=== PATIENT | female | born 1990 | race Caucasian/White ===

== ENCOUNTER 2017-01-24 20:15 | Emergency (ER) | payer BC, MEDICAID ==
[2017-01-24 20:32] VITALS: BP 118/82; PULSE 99; RESP 20; TEMP 98.1; O2SAT 99
--- NOTE | 2017-01-24 21:18 | C.PDOC ---
History Of Present Illness 26 y/o female c/o vaginal irritation, thin white vaginal discharge and right pelvic pain today. 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 no fever or chills. no urinary symptoms. pt had unprotected sex recently with her regular partner, denies dyspareunia. . Time Seen by Provider: 01/24/17 21:00 Chief Complaint (Nursing): Female Genitourinary Past Medical History Reviewed: Historical Data, Nursing Documentation, Vital Signs Vital Signs: Last Vital Signs Temp 98.1 F 01/24/17 20:29 Pulse 99 H 01/24/17 20:29 Resp 20 01/24/17 20:29 BP 118/82 01/24/17 20:29 Pulse Ox 99 01/24/17 22:18 - Medical History PMH: No Chronic Diseases Surgical History: No Surg Hx Family History: States: Unknown Family Hx - Social History Hx Tobacco Use: No Hx Alcohol Use: No Hx Substance Use: No - Immunization History Hx Tetanus Toxoid Vaccination: No Hx Influenza Vaccination: No Hx Pneumococcal Vaccination: No Review Of Systems Constitutional: Negative for: Fever, Chills Gastrointestinal: Negative for: Nausea, Vomiting, Diarrhea Genitourinary: Positive for: Vaginal Discharge, Pelvic Pain. Negative for: Dysuria, Frequency, Incontinence, Hematuria, Vaginal Bleeding Neurological: Negative for: Weakness, Numbness Physical Exam - Physical Exam Appears: Non-toxic, No Acute Distress Skin: Normal Color, Warm, Dry Head: Atraumatic, Normacephalic Cardiovascular: Rhythm Regular, No Murmur Respiratory: Normal Breath Sounds, No Rales, No Rhonchi, No Stridor Gastrointestinal/Abdominal: Normal Exam, Soft, No Tenderness, No Distention, No Guarding, No Rebound Pelvic: Normal External Exam, Normal Bimanual Exam, No Vaginal Bleeding, Vaginal Discharge (thick clumpy white dischrge with some thin white discharge. 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 Prescriptions: Miconazole 2% Vaginal [Monistat 7 Vaginal Cream] 7 applic VG HS #1 tube Instructions: Vulvovaginal Candidiasis (ED) Forms: General Discharge Instructions - Clinical Impression Clinical Impression: Candidiasis of vagina
[2017-01-24 21:31] LABS: RBC URINE < 1 /hpf (0-3); URINE BILIRUBIN NEGATIVE (NEGATIVE); URINE BLOOD NEGATIVE (NEGATIVE); URINE COLOR Yellow (YELLOW); URINE GLUCOSE (UA) NORMAL (Normal); URINE KETONE NEGATIVE (NEGATIVE); URINE LEUKOCYTE ESTERASE NEG Leu/uL (Negative); URINE PROTEIN NEGATIVE (NEGATIVE); URINE UROBILINOGEN NORMAL mg/dL (0.2-1.0); WBC URINE < 1 /hpf (0-5)
== END 2017-01-24 22:40 | disposition home or self-care (01) ==
LOC: C.ER 20:15
DX: B37.3 Candidiasis of vulva and vagina (principal)

== ENCOUNTER 2017-08-03 18:23 | Emergency (ER) | payer BC, MEDICAID ==
[2017-08-03 18:45] VITALS: RESP 18
[2017-08-03] MEDS ORDERED: Amoxicillin-Clav 875-125 mg Tab PO STA (19:27)
--- NOTE | 2017-08-03 19:30 | C.PDOC ---
History Of Present Illness 26 yr old female with history of seasonal allergy, presents to the ER for evaluation of sore throat and nasal congestion, gradually developing for the past few days which is associated with bilateral ear discomfort states "feels like underwater". Patient denies fever, chills, headache, dizziness, vertigo, visual changes, drooling, dysphagia, dyspnea, CP, SOB, wheezing, nausea, vomiting, abdominal pain, back pain, denies any other active complaints. Ambulate to Ed for evaluation, not in any apparent distress. Time Seen by Provider: 08/03/17 18:59 Chief Complaint (Nursing): ENT Problem History Per: Patient History/Exam Limitations: None Onset/Duration Of Symptoms: Gradual (Past few days) Past Medical History Reviewed: Historical Data, Nursing Documentation, Vital Signs Vital Signs: Last Vital Signs Temp 98.6 F 08/03/17 19:45 Pulse 91 H 08/03/17 19:45 Resp 18 08/03/17 19:45 BP 102/69 08/03/17 19:45 Pulse Ox 99 08/03/17 19:45 Family History: States: No Known Family Hx - Social History Hx Tobacco Use: No Hx Alcohol Use: No Hx Substance Use: No - Immunization History Hx Tetanus Toxoid Vaccination: No Hx Influenza Vaccination: No Hx Pneumococcal Vaccination: No Review Of Systems Except As Marked, All Systems Reviewed And Found Negative. Constitutional: Negative for: Fever, Chills ENT: Positive for: Throat Pain, Other ((+) Bilateral ear discomfort) Cardiovascular: Negative for: Chest Pain Respiratory: Negative for: Shortness of Breath, Wheezing Gastrointestinal: Negative for: Nausea, Vomiting, Abdominal Pain Neurological: Negative for: Weakness, Numbness Physical Exam - Physical Exam Appears: Non-toxic, No Acute Distress Skin: Warm, Dry, No Rash Head: Normacephalic Eye(s): bilateral: PERRL Ear(s): Bilateral: Normal Nose: No Flaring, Discharge (Scant rhinorrhea), Other ((+) Bilateral nasal congestion) Oral Mucosa: Moist, No Drooling Throat: Erythema (Moderate), No Exudate, No Drooling, Other ((+) Bilateral edema ) Neck: Supple Chest: Symmetrical, No Tenderness Cardiovascular: Rhythm Regular, No Murmur, No JVD Respiratory: No Decreased Breath Sounds, No Accessory Muscle Use, No Rales, No Rhonchi, No Stridor, No Wheezing Gastrointestinal/Abdominal: Soft, No Tenderness Extremity: No Swelling Neurological/Psych: Oriented x3, Normal Speech, Normal Motor ED Course And Treatment O2 Sat by Pulse Oximetry: 100 (RA) Pulse Ox Interpretation: Normal Progress Note: On re-eval, pt is afebrile, hemodynamicaly stable. non-toxic. Tolerate Po well in ED. PuslEOx 99% RA. ENT: exam c/w pharyngitis. neck: Supple, (-) meningeal sign. Lungs: CTA B/L, BS equal B/L. Abd: benign, (-) guarding, (-) rebound. Neurologicaly intact. pt advised. ref to f/u with PMD in 1-2 days for re-eval. return to ED if any worsening or new changes. Medical Decision Making Medical Decision Making: PLAN: * Augmentin PO * Motrin PO * Prednisone PO Disposition Counseled Patient/Family Regarding: Diagnosis, Need For Followup, Rx Given - Disposition Referrals: Justina Bah MD [Staff Provider] - Disposition: HOME/ ROUTINE Disposition Time: 19:27 Condition: STABLE Additional Instructions: Encourage fluids Take medication as prescribed Follow up with PMD and ENT In 2-3 days for re-evaluation. return to ED if any worsening or new changes. Prescriptions: Amoxicillin/Clavulanate [Augmentin 875 MG-125 MG] 1 tab PO BID #14 tab Prednisone [Deltasone] 40 mg PO DAILY #6 tablet Instructions: Pharyngitis (ED) Forms: [employer] 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 - Scribe Statement The provider has reviewed the documentation as recorded by the Scribe Roberta Vance All medical record entries made by the Yossiibmichaela were at my direction and personally dictated by me. I have reviewed the chart and agree that the record accurately reflects my personal performance of the history, physical exam, medical decision making, and the department course for this patient. I have also personally directed, reviewed, and agree with the discharge instructions and disposition.
[2017-08-03] MEDS ORDERED: Amoxicillin-Clav 875-125 mg Tab PO ONE (19:40)
[2017-08-03 19:46] VITALS: BP 102/69; PULSE 91; TEMP 98.6
[2017-08-03 22:14] VITALS: O2SAT 100
== END 2017-08-03 19:45 | disposition home or self-care (01) ==
LOC: C.ER 18:23
DX: J02.9 Acute pharyngitis, unspecified (principal)

== ENCOUNTER 2018-05-21 15:57 | Emergency (ER) | payer BC, MEDICAID ==
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
[2018-05-21 16:44] VITALS: BP 107/71; PULSE 75; RESP 18; TEMP 99.3; O2SAT 99
== END 2018-05-21 17:31 | disposition home or self-care (01) ==
LOC: C.ER 15:57
DX: G89.29 Other chronic pain (principal); M54.2 Cervicalgia

== ENCOUNTER 2018-06-04 07:16 | Emergency (ER) | payer MEDICAID ==
[2018-06-04 08:21] LABS: HCG,QUALITATIVE URINE NEGATIVE (NEGATIVE)
[2018-06-04 08:25] LABS: SQUAMOUS EPITHIAL 7 /hpf (0-5); URINE BACTERIA RARE (<OCC); URINE BILIRUBIN NEGATIVE (NEGATIVE); URINE BLOOD 1+ (NEGATIVE); URINE CLARITY Hazy (Clear); URINE COLOR Yellow (YELLOW); URINE GLUCOSE (UA) NORMAL (Normal); URINE LEUKOCYTE ESTERASE NEG Leu/uL (Negative); URINE PROTEIN NEGATIVE (NEGATIVE); URINE UROBILINOGEN NORMAL mg/dL (0.2-1.0)
--- NOTE | 2018-06-04 08:43 | C.PDOC ---
History Of Present Illness 27 year old female presents to the ED complaining of nausea, vomiting, and diarrhea for 1 day. Patient reports she is able to drink water but unable to tolerate food intake. She states 5-10 episodes of loose stools. She denies any fever, chills, abdominal pain, or any other urinary symptoms. Time Seen by Provider: 06/04/18 07:34 Chief Complaint (Nursing): GI Problem History Per: Patient History/Exam Limitations: no limitations Onset/Duration Of Symptoms: Days Current Symptoms Are (Timing): Still Present Past Medical History Reviewed: Historical Data, Nursing Documentation, Vital Signs Vital Signs: Last Vital Signs Temp 98.6 F 06/04/18 09:02 Pulse 82 06/04/18 09:02 Resp 14 06/04/18 09:02 BP 113/72 06/04/18 09:02 Pulse Ox 98 06/04/18 09:02 - Medical History PMH: No Chronic Diseases Surgical History: No Surg Hx Family History: States: No Known Family Hx - Social History Hx Tobacco Use: No Hx Alcohol Use: No Hx Substance Use: No - Immunization History Hx Tetanus Toxoid Vaccination: No Hx Influenza Vaccination: No Hx Pneumococcal Vaccination: No Review Of Systems Except As Marked, All Systems Reviewed And Found Negative. Constitutional: Negative for: Fever, Chills Gastrointestinal: Positive for: Nausea, Vomiting, Diarrhea. Negative for: Abdominal Pain Genitourinary: Negative for: Dysuria, Frequency, Incontinence, Hematuria, Vaginal Discharge Physical Exam - Physical Exam Appears: Non-toxic, No Acute Distress Skin: Warm, Dry, No Rash Head: Atraumatic, Normacephalic Eye(s): bilateral: Normal Inspection Nose: Normal Oral Mucosa: Moist Gingiva: Normal Appearing Throat: Normal, No Erythema, No Exudate, No Drooling Neck: Supple Chest: Symmetrical Cardiovascular: Rhythm Regular, No Murmur Respiratory: Normal Breath Sounds, No Rales, No Rhonchi, No Wheezing Gastrointestinal/Abdominal: Soft, No Tenderness, No Distention, No Guarding, No Rebound Extremity: Normal ROM Neurological/Psych: Oriented x3, Normal Speech Gait: Steady ED Course And Treatment O2 Sat by Pulse Oximetry: 99 (RA) Pulse Ox Interpretation: Normal Medical Decision Making Medical Decision Making: Impression: gastroenteritis, now resolved Orders: Pepcid 20mg PO Zofran 4mg PO Patient is resting comfortably, abdomen remains soft, and patient is tolerating PO. Patient feels comfortable going home. Patient will be discharged home. Disposition Doctor Will See Patient In The: Office Counseled Patient/Family Regarding: Studies Performed, Diagnosis - Disposition Referrals: Justina Bah MD [Staff Provider] - Disposition: HOME/ ROUTINE Disposition Time: 08:43 Condition: GOOD Additional Instructions: continue Pepcid 20 mg twice a day (9AM and 9PM) for stomach irritation/gastritis Maalox 30 cc's (one tablespoon) 4-5x today as needed. bland diet for 2 days BRAT diet: Bananas, white rice, apples/toast/bread drink plenty of fluids Instructions: Viral Gastroenteritis, Adult (DC) Forms: [employer] (Romanian), Work Excuse - Clinical Impression Clinical Impression: Gastroenteritis - Scribe Statement The provider has reviewed the documentation as recorded by the Scribe Lucia Soliman All medical record entries made by the Scribe were at my direction and personally dictated by me. I have reviewed the chart and agree that the record accurately reflects my personal performance of the history, physical exam, medical decision making, and the department course for this patient. I have also personally directed, reviewed, and agree with the discharge instructions and disposition.
[2018-06-04 09:04] VITALS: BP 113/72; PULSE 82; RESP 14; TEMP 98.6
[2018-06-04 10:17] VITALS: O2SAT 99
== END 2018-06-04 09:04 | disposition home or self-care (01) ==
LOC: C.ER 07:16
DX: K52.9 Noninfective gastroenteritis and colitis, unspecified (principal)

== ENCOUNTER 2018-12-30 14:45 | Emergency (ER) | payer MEDICAID, OTHER ==
[2018-12-30 15:14] VITALS: PULSE 84; RESP 20; O2SAT 100
[2018-12-30] MEDS ORDERED: Sodium Chloride 0.9% 1,000 ML IV STA (15:44)
[2018-12-30] MEDS ORDERED: Sodium Chloride 0.9% 1,000 ML ONE (16:01)
[2018-12-30 16:18] LABS: BASO # 0.1 K/uL (0.0-0.2); BASO % 0.4 % (0.0-2.0); EOS # 0.1 K/uL (0.0-0.7); EOS % 0.5 % (0.0-4.0); HEMOGLOBIN 12.7 g/dL (11.0-16.0); LYMPH # 2.6 K/uL (1.0-4.3); LYMPH % 20.4 % (20.0-40.0); MEAN CELL VOLUME 89.2 fL (81.0-99.0); MEAN CORPUSCULAR HEMOGLOBIN 29.4 pg (27.0-31.0); MEAN PLATELET VOLUME 8.8 fL (7.2-11.7); MONO # 0.7 K/uL (0.0-0.8); MONO % 5.4 % (0.0-10.0); NEUT # 9.5 K/uL (1.8-7.0); NEUT % 73.3 % (50.0-75.0); RBC 4.32 Mil/uL (3.80-5.20); RED CELL DISTRIBUTION WIDTH 12.7 % (11.5-14.5); WHITE BLOOD COUNT 12.9 K/uL (4.8-10.8)
[2018-12-30 16:40] LABS: URINE AMORPHOUS SEDIMENT MODERATE /ul (<OCC); URINE BACTERIA OCC (<OCC); URINE BILIRUBIN NEGATIVE (NEGATIVE); URINE BLOOD NEGATIVE (NEGATIVE); URINE CLARITY Turbid (Clear); URINE COLOR Yellow (YELLOW); URINE GLUCOSE (UA) NORMAL (Normal); URINE LEUKOCYTE ESTERASE NEG Leu/uL (Negative); URINE PROTEIN NEGATIVE (NEGATIVE); URINE UROBILINOGEN NORMAL mg/dL (0.2-1.0)
[2018-12-30 17:46] VITALS: BP 103/68; TEMP 98.6
[2018-12-30 17:48] LABS: BLOOD UREA NITROGEN 7 mg/dL (7-17); GFR NON-AFRICAN AMERICAN > 60
[2018-12-30 17:49] LABS: ALB/GLOB RATIO 1.4 (1.0-2.1); ALBUMIN 4.4 g/dL (3.5-5.0); ALT/SGPT 32 U/L (9-52); AST/SGOT 46 U/L (14-36); CALCIUM 8.7 mg/dl (8.6-10.4)
--- NOTE | 2018-12-30 18:11 | C.PDOC ---
History Of Present Illness 28 year old female, 11 weeks , presents to the emergency department with complaints of abdominal discomfort. Patient states that she recently lost a family member and has been emotional, crying often. Patient's family suggested to her to present to the ED to be evaluated, as they were worried regarding her . Patient offered no other complaints at this time. Time Seen by Provider: 12/30/18 15:07 Chief Complaint (Nursing): Abdominal Pain History Per: Patient History/Exam Limitations: no limitations Onset/Duration Of Symptoms: Hrs Current Symptoms Are (Timing): Still Present Location Of Pain/Discomfort: Other (abdomen) Quality Of Discomfort: Other (discomfort) Past Medical History Reviewed: Historical Data, Nursing Documentation, Vital Signs Vital Signs: Last Vital Signs Temp 98.6 F 12/30/18 17:45 Pulse 84 12/30/18 17:45 Resp 20 12/30/18 17:45 BP 103/68 12/30/18 17:45 Pulse Ox 100 12/30/18 17:45 - Medical History PMH: No Chronic Diseases Surgical History: No Surg Hx Family History: States: No Known Family Hx - Social History Hx Tobacco Use: No Hx Alcohol Use: No Hx Substance Use: No - Immunization History Hx Tetanus Toxoid Vaccination: No Hx Influenza Vaccination: No Hx Pneumococcal Vaccination: No Review Of Systems Except As Marked, All Systems Reviewed And Found Negative. Constitutional: Negative for: Fever, Chills Cardiovascular: Negative for: Chest Pain Respiratory: Negative for: Cough, Shortness of Breath Gastrointestinal: Positive for: Abdominal Pain. Negative for: Vomiting, Diarrhea Physical Exam - Physical Exam Appears: Non-toxic, No Acute Distress Skin: Normal Color, Warm, Dry Head: Atraumatic, Normacephalic Eye(s): bilateral: Normal Inspection, PERRL, EOMI Nose: Normal Oral Mucosa: Moist Neck: Normal, Supple Chest: Symmetrical, No Tenderness Cardiovascular: Rhythm Regular, No Murmur Respiratory: Normal Breath Sounds, No Rales, No Rhonchi, No Wheezing Gastrointestinal/Abdominal: Soft, No Tenderness, No Guarding, No Rebound, Other (gravid) Extremity: Normal ROM Neurological/Psych: Oriented x3, Normal Speech, Normal Cognition ED Course And Treatment - Laboratory Results Result Diagrams: 12/30/18 15:49 12/30/18 15:49 Lab Results: Total Bilirubin 0.3 mg/dL (0.2-1.3) 12/30/18 15:49 AST 46 U/L (14-36) H 12/30/18 15:49 ALT 32 U/L (9-52) 12/30/18 15:49 Alkaline Phosphatase 50 U/L (38-126) 12/30/18 15:49 Total Protein 7.5 g/dL (6.3-8.3) 12/30/18 15:49 Albumin 4.4 g/dL (3.5-5.0) 12/30/18 15:49 Globulin 3.1 gm/dL (2.2-3.9) 12/30/18 15:49 Albumin/Globulin Ratio 1.4 (1.0-2.1) 12/30/18 15:49 Urine Color Yellow (YELLOW) 12/30/18 15:49 Urine Clarity Turbid (Clear) 12/30/18 15:49 Urine pH 8.0 (5.0-8.0) 12/30/18 15:49 Ur Specific [place] 1.015 (1.003-1.030) 12/30/18 15:49 Urine Protein Negative mg/dL (NEGATIVE) 12/30/18 15:49 Urine Glucose (UA) Normal mg/dL (Normal) 12/30/18 15:49 Urine Ketones Negative mg/dL (NEGATIVE) 12/30/18 15:49 Urine Blood Negative (NEGATIVE) 12/30/18 15:49 Urine Nitrate Negative (NEGATIVE) 12/30/18 15:49 Urine Bilirubin Negative (NEGATIVE) 12/30/18 15:49 Urine Urobilinogen Normal mg/dL (0.2-1.0) 12/30/18 15:49 Ur Leukocyte Esterase Neg Basil/uL (Negative) 12/30/18 15:49 Amorphous Sediment Moderate /ul (<OCC) H 12/30/18 15:49 Urine Bacteria Occ (<OCC) H 12/30/18 15:49 Beta HCG, Quant 70501.00 mIU/ML 12/30/18 15:49 O2 Sat by Pulse Oximetry: 100 (RA) Pulse Ox Interpretation: Normal - CT Scan/US US Other Rad Studies (CT/US): Read By Radiologist, Radiology Report Reviewed CT/US Interpretation: IMPRESSION: Single live intrauterine gestation of approximately 12 weeks 0 days gestational age. heart rate 152 beats per minute. No subchorionic hemorrhage. Cervix long and closed. Incidental 1.8 cm anterior uterine fibroid. Medical Decision Making Medical Decision Making: Plan: Chemistry Buspar 5mg PO NaCl IV Fluids Zofran 4mg IVP Urinalysis US Patient received ultrasound, but does not want to wait for the results as she has somewhere to be at this time. Disposition - Disposition Referrals: Justina Bah MD [Staff Provider] - Disposition: HOME/ ROUTINE Disposition Time: 18:15 Condition: STABLE Additional Instructions: Follow up with PMD and OBGYN within 1-2 days. Return to ED if feel worse. 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 - Scribe Statement The provider has reviewed the documentation as recorded by the Scribe (Jordin Summers) All medical record entries made by the Scribe were at my direction and personally dictated by me. I have reviewed the chart and agree that the record accurately reflects my personal performance of the history, physical exam, medical decision making, and the department course for this patient. I have also personally directed, reviewed, and agree with the discharge instructions and disposition.
--- NOTE | 2018-12-30 18:13 | US ---
Date of service: 12/30/2018 PROCEDURE: OB Pelvic Ultrasound HISTORY: , pain 10/09/2018 COMPARISON: None available. FINDINGS: UTERUS: Gestational sac: Gestational sac diameter 56 mm equivalent to 11 weeks 4 days gestational age. [place]-rump length 59 mm equivalent to 12 weeks 2 days. Heart rate: 152 bpm. age (Ultrasound estimated): 12 weeks 0 days [place]-gestational hemorrhage: None. Date of delivery (Ultrasound estimated) : 07/14/2019 Uterus measures 12.8 x 7.6 x 6.8 cm. Anterior uterine fibroid, 1.8 cm. CERVIX: Measures 3.7 cm. Long and closed. No cervical abnormality seen. RIGHT OVARY: Measures 2.8 x 2.0 x 2.7 cm. Corpus luteum cyst, 1.2 x 1.1 x 1.4 cm. LEFT OVARY: Measures 2.5 x 2.4 x 2.3 cm. No solid mass. Normal flow. FREE FLUID: None. OTHER FINDINGS: None. IMPRESSION: Single live intrauterine gestation of approximately 12 weeks 0 days gestational age. heart rate 152 beats per minute. No subchorionic hemorrhage. Cervix long and closed. Incidental 1.8 cm anterior uterine fibroid.
[2018-12-30] MEDS ORDERED: Potassium Chloride 10 mEq ER Tab PO STA (18:16)
[2018-12-30 18:17] LABS: BARBITURATES, UR NEGATIVE (NEGATIVE); BENZODIAZEPINES, UR NEGATIVE (NEGATIVE); OPIATES, UR NEGATIVE (NEGATIVE); PHENCYCLIDINE, UR NEGATIVE (NEGATIVE)
[2018-12-30] MEDS ORDERED: Potassium Chloride 10 mEq ER Tab PO ONE (18:22)
== END 2018-12-30 18:22 | disposition home or self-care (01) ==
LOC: C.ER 14:45
DX: O26.891 Other specified pregnancy related conditions, first trimester (principal); F41.9 Anxiety disorder, unspecified; Z3A.12 12 weeks gestation of pregnancy
CPT/HCPCS: 76801; 80053; 80324; 80345; 80346; 80349; 80353; 80358; 80361; 81001; 81025; 83992; 84702; 85025; 96361; 96374; 99285; J2405; J7030

== ENCOUNTER 2019-02-15 00:08 | Emergency (ER) | payer OTHER ==
[2019-02-15 00:16] VITALS: BP 112/72; TEMP 98.6; O2SAT 100
--- NOTE | 2019-02-15 02:07 | C.PDOC ---
History Of Present Illness 28 year old female 18 weeks , first , no previous issues, had US last week that was normal, reports several hours ago began developing lower abdominal radiating to her lower back pain bilaterally. Patient reports the pain worsens when standing up, walking, and moving. Denies injury, vaginal bleeding, or vaginal discharge. She has not taken anything at home for the pain. Time Seen by Provider: 02/15/19 00:41 Chief Complaint (Nursing): Abdominal Pain History Per: Patient History/Exam Limitations: no limitations Onset/Duration Of Symptoms: Hrs Current Symptoms Are (Timing): Still Present Location Of Pain/Discomfort: Other (Lower) Radiation Of Pain To:: Back Quality Of Discomfort: Unable To Describe Associated Symptoms: denies: Other (Vaginal bleeding, Vaginal discharge) Exacerbating Factors: None Alleviating Factors: None Recent travel outside of the [place]: No Past Medical History Reviewed: Historical Data, Nursing Documentation, Vital Signs Vital Signs: Last Vital Signs Temp 98.6 F 02/15/19 00:13 Pulse 96 H 02/15/19 00:13 Resp 18 02/15/19 00:13 BP 112/72 02/15/19 00:13 Pulse Ox 100 02/15/19 00:13 Family History: States: No Known Family Hx - Social History Hx Tobacco Use: No Hx Alcohol Use: No Hx Substance Use: No - Immunization History Hx Tetanus Toxoid Vaccination: No Hx Influenza Vaccination: No Hx Pneumococcal Vaccination: No Review Of Systems Constitutional: Negative for: Fever, Chills Cardiovascular: Negative for: Chest Pain, Palpitations Respiratory: Negative for: Cough, Shortness of Breath Gastrointestinal: Positive for: Abdominal Pain. Negative for: Nausea, Vomiting Genitourinary: Negative for: Vaginal Discharge, Vaginal Bleeding Musculoskeletal: Negative for: Back Pain Skin: Negative for: Rash Neurological: Negative for: Weakness, Numbness Physical Exam - Physical Exam Appears: Non-toxic Skin: Normal Color, Warm Head: Atraumatic, Normacephalic Oral Mucosa: Moist Chest: Symmetrical Cardiovascular: Rhythm Regular Respiratory: Normal Breath Sounds, No Rales, No Rhonchi, No Wheezing Gastrointestinal/Abdominal: Soft, No Tenderness, Other (Gravid uterus up to umbilicus) Back: No CVA Tenderness, No Other (flank tenderness) Neurological/Psych: Oriented x3, Normal Speech ED Course And Treatment O2 Sat by Pulse Oximetry: 100 (room air) Pulse Ox Interpretation: Normal Medical Decision Making Medical Decision Making: Plan: * UA * Tylenol Tylenol PO given for pain. FHT checked, 140bpm. UA unremarkable. On re-eval patient states that she wants to go home and will follow up with her cycle repairer. Disposition - Disposition Disposition: HOME/ ROUTINE Disposition Time: 02:20 Condition: GOOD Additional Instructions: LEANDRA KNIGHT, thank you for letting us take care of you today. Your provider was Elizabeth Irvin MD and you were treated for 18 WEEKS PREG ABD PAIN. The emergency medical care you received today was directed at your acute symptoms. If you were prescribed any medication, please fill it and take as directed. It may take several days for your symptoms to resolve. Return to the Emergency Department if your symptoms worsen, do not improve, or if you have any other problems. Please contact your doctor or call one of the physicians/clinics you have been referred to that are listed on the Patient Visit Information form that is included in your discharge packet. Bring any paperwork you were given at discharge with you along with any medications you are taking to your follow up visit. Our treatment cannot replace ongoing medical care by a primary care provider outside of the emergency department. Thank you for allowing the [facility] team to be part of your care today. If you had an X-Ray or CT scan: A Radiologist will review the ED reading if any change in treatment is needed we will contact you. If you had a blood, urine, or wound culture: It will take several days for the results, if any change in treatment is needed we will contact you. If you had an STI test: It will take 48 hours for the results. Please call after 1 week if you have not heard back. Instructions: Stomach Pain in Early Forms: [employer] ([place]an) - Clinical Impression Clinical Impression: Abdominal pain during - Scribe Statement The provider has reviewed the documentation as recorded by the Scribe Dakotah Prado All medical record entries made by the Scribe were at my direction and personally dictated by me. I have reviewed the chart and agree that the record accurately reflects my personal performance of the history, physical exam, medical decision making, and the department course for this patient. I have also personally directed, reviewed, and agree with the discharge instructions and disposition.
[2019-02-15 02:08] VITALS: PULSE 89; RESP 20
[2019-02-15 02:09] LABS: SQUAMOUS EPITHIAL 2 /hpf (0-5); URINE BACTERIA FEW (<OCC); URINE BILIRUBIN NEGATIVE (NEGATIVE); URINE BLOOD NEGATIVE (NEGATIVE); URINE CLARITY Hazy (Clear); URINE COLOR Yellow (YELLOW); URINE GLUCOSE (UA) NORMAL (Normal); URINE LEUKOCYTE ESTERASE NEG Leu/uL (Negative); URINE PROTEIN NEGATIVE (NEGATIVE); URINE UROBILINOGEN NORMAL mg/dL (0.2-1.0)
== END 2019-02-15 02:24 | disposition home or self-care (01) ==
LOC: C.ER 00:08
DX: O26.892 Other specified pregnancy related conditions, second trimester (principal); R10.30 Lower abdominal pain, unspecified; Z3A.18 18 weeks gestation of pregnancy